=== PATIENT | female | born 1980 | race Two or more races ===

== ENCOUNTER → 2019-03-16 | Outpatient (CLI) | payer MEDICAID, MEDICARE | END | disposition home or self-care (01) | LOC: MSC 13:50 | PROVIDERS: ATTEND Anesthesiology | DX: M54.5 Low back pain (principal); G89.4 Chronic pain syndrome; G43.709 Chronic migraine without aura, not intractable, without status migrainosus; G43.919 Migraine, unspecified, intractable, without status migrainosus; M54.12 Radiculopathy, cervical region; K50.90 Crohn's disease, unspecified, without complications; F11.20 Opioid dependence, uncomplicated; Z80.9 Family history of malignant neoplasm, unspecified; Z83.3 Family history of diabetes mellitus; Z82.49 Family history of ischemic heart disease and other diseases of the circulatory system ==